=== PATIENT | female | born 1955 | race Caucasian/White ===

== ENCOUNTER → 2017-05-15 | Outpatient (CLI) | payer OTHER ==
--- NOTE | ~2017-05-15 | US85 ---
[facility] A Service of [facility] RADIOLOGY TEXT RESULTS PATIENT: KATIE BARRERA LOCATION: CNIV : 55 UNIT #: [id number] AGE: [address]: Aldair Valenzuela MD SEX: F ORDER DR: [id number] [facility] [address] [place], [place] [address] [id number] O MR#: [id number] Acc #: [id number] NAME: KATIE BARRERA : 1955 SEX: F STUDY DATE/TIME: 05/15/2017 16:44 UNIT: CNIV ROOM: STUDY DESCRIPTION: [facility] Attending Physician: Aldair Valenzuela M.D. Referring Physician: Aldair Valenzuela M.D. Ordering Physician: Aldair Valenzuela M.D. Primary Care Physician: Aldair Valenzuela M.D. MEDICAL IMAGING REPORT This report is preliminary unless electronic signature is present EXAM Right lower extremity venous Doppler. HISTORY Right lower extremity pain and swelling x1 month. TECHNIQUE Venous ultrasound examination of the right lower extremity was performed using grayscale, spectral Doppler and color flow Doppler imaging. FINDINGS The examination is negative. There is no evidence of right lower extremity deep venous thrombus from the groin to the lower calf. Visualized greater saphenous vein is also patent. IMPRESSION Negative examination. No evidence of right lower extremity deep venous thrombosis. Dictated by... Cori Kaminski M.D. THIS IS AN ELECTRONICALLY VERIFIED REPORT Cori Kaminski M.D. at 05/16/2017 2:20 PM Karen TD: 05/15/2017 21:35 JOB #: [id number] MEDICAL IMAGING REPORT Page 1 of 1 COPY
== END | disposition home or self-care (01) ==
LOC: CNIV 15:55
DX: M79.604 Pain in right leg (principal)
CPT/HCPCS: 93971